=== PATIENT | female | born 1970 ===

== ENCOUNTER 2022-08-21 05:00 | Day surgery (SDC) | payer OTHER ==
[~2022-08-21] VITALS: Ht 154.9 cm; Wt 59.0 kg
[~2022-08-21 05:00] MED LIST: CRESTOR5 MG PO; ROSUVAST PO
[2022-08-21] MEDS ORDERED: MORGIDOX100 MG PO (08:28)
[2022-08-21] MEDS ORDERED: NAPR500T14 PO (08:28)
== END 2022-08-21 12:15 | disposition home or self-care (01) ==
LOC: CIR.AMB 05:00
PROVIDERS: ATTEND Obstetrics & Gynecology
DX: N93.8 Other specified abnormal uterine and vaginal bleeding (principal); N84.0 Polyp of corpus uteri; D25.0 Submucous leiomyoma of uterus; Z20.822 Contact with and (suspected) exposure to COVID-19